=== PATIENT | male | born 1955 | race Hispanic/Latino ===

== ENCOUNTER 2024-05-01 21:35 | Emergency (ER) | payer OTHER ==
[~2024-05-01] VITALS: Ht 162.6 cm; Wt 77.1 kg
[2024-05-01 22:13] VITALS: TEMP 98
[2024-05-01 23:08] LABS: BILIRUBIN,URINE NEGATIVE (NEGATIVE); CLARITY,URINE CLEAR (CLEAR); COLOR,URINE YELLOW (YELLOW); GLUCOSE, URINE NEGATIVE (NEGATIVE); KETONES,URINE NEGATIVE (NEGATIVE); LEUKOCYTE ESTERASE ,URINE TRACE (NEGATIVE); NITRITE,URINE NEGATIVE (NEGATIVE); PH,URINE 5.5 (5 - 7); PROTEIN,URINE DIPSTICK TRACE (NEGATIVE); URINE UROBILINOGEN 0.2 mg/dL (0.2 - 1)
[2024-05-01 23:15] VITALS: PULSE 67; RESP 15
[2024-05-01 23:19] LABS: RBC,URINE 21-50 /HPF (0-5)
[2024-05-01 23:20] LABS: BACTERIA,URINE MANY /HPF; EPITHELIAL CELLS,URINE FEW /LPF
[2024-05-01 23:49] VITALS: BP 165/109; PULSE 78; RESP 18; TEMP 98; O2SAT 97
== END 2024-05-01 23:52 | disposition home or self-care (01) ==
LOC: ER 21:45
DX: R33.9 Retention of urine, unspecified (principal); N40.1 Benign prostatic hyperplasia with lower urinary tract symptoms; R10.30 Lower abdominal pain, unspecified; I10 Essential (primary) hypertension
CPT/HCPCS: 51700; 81001; 87086; 87186; 99282